=== PATIENT | male | born 1985 | race African-American/Black ===

== ENCOUNTER 2017-04-05 06:16 | Emergency (ER) | payer SELFPAY ==
[~2017-04-05] VITALS: Ht 185.4 cm; Wt 113.4 kg
[2017-04-05 06:40] VITALS: BP 128/77
--- NOTE | 2017-04-05 06:49 | NUR ---
PT TAKEN TO BED 7
--- NOTE | 2017-04-05 06:50 | NUR ---
Diallo hartley in EDM - 04/05/17 at 0654 by JESSICAN 32 Y/O M W/C/O BLURED VISSION X 2 DAYS. MED HX DM, HTN. PT STATES HE IS NOT COMPLAINT WITH TX FOR DM AND HTN.
--- NOTE | 2017-04-05 06:50 | NUR ---
32 Y/O M W/C/O BLURED VISION X 2 DAYS. MED HX DM, HTN. PT STATES HE IS NOT COMPLAINT WITH TX FOR DM AND HTN.
--- NOTE | 2017-04-05 07:38 | NUR ---
PT RESTING ON BED;NO ACUTE DISTRESS NOTED;WILL CONTINUE TO MONITOR PT.
[2017-04-05 08:44] VITALS: BP 124/78
--- NOTE | 2017-04-05 08:44 | NUR ---
Patient discharged with v/s stable. Written and verbal after care instructions given and explained. Patient alert, oriented and verbalized understanding of instructions. with steady gait. All questions addressed prior to discharge. ID band removed. Patient advised to follow up with PMD. Rx of GENATMYCIN SULFATE given. Patient educated on indication of medication including possible reaction and side effects. Opportunity to ask questions provided and answered.
== END 2017-04-05 08:44 | disposition home or self-care (01) ==
LOC: MED 06:16
DX: H10.89 Other conjunctivitis (principal); F20.9 Schizophrenia, unspecified; E11.9 Type 2 diabetes mellitus without complications; Z91.013 Allergy to seafood
CPT/HCPCS: 99283

== ENCOUNTER 2017-04-19 15:54 | Emergency (ER) | payer SELFPAY ==
[~2017-04-19] VITALS: Ht 182.9 cm; Wt 113.4 kg
[2017-04-19 16:50] VITALS: BP 132/71
[2017-04-19 17:34] LABS: BASOPHILS # (AUTO) 0.3 K/uL (0.00-0.22); BASOPHILS % (AUTO) 4.3 % (0.0-2.0); EOSINOPHILS # (AUTO) 0.1 K/uL (0-0.4); EOSINOPHILS % (AUTO) 0.8 % (0.0-4.0); HEMATOCRIT 43.6 % (36-52); HEMOGLOBIN 14.5 g/dL (12.0-18.0); LYMPHOCYTES # (AUTO) 3.5 K/uL (2.0-11.5); LYMPHOCYTES % (AUTO) 46.1 % (20.5-51.1); MEAN CORPUSCULAR HEMOGLOBIN 29 pg (27-31); MEAN CORPUSCULAR HGB CONC 33 g/dL (33-37); MEAN CORPUSCULAR VOLUME 86 fL (80-94); MONOCYTES # (AUTO) 0.6 K/uL (0.8-1.0); MONOCYTES % (AUTO) 8.1 % (1.7-9.3); NEUTROPHILS # (AUTO) 3.2 K/uL (1.8-7.7); NEUTROPHILS % (AUTO) 40.7 % (42.2-75.2); PLATELET COUNT (AUTO) 287 K/uL (140-450); RED BLOOD CELL COUNT(AUTO) 5.07 MIL/uL (4.20-6.10); WHITE BLOOD COUNT (AUTO) 7.8 K/uL (4.8-10.8)
[2017-04-19 17:38] LABS: ANION GAP 6.3 (8-16); CARBON DIOXIDE 31.6 mmol/L (21-32); CHLORIDE 99 mmol/L (98-107); GFR ARICAN-AMERICAN 110 mL/min (>90); GLUCOSE 327 mg/dL (74-106); POTASSIUM 3.9 mmol/L (3.5-5.1); SODIUM SERUM 133 mmol/L (136-145); UREA NITROGEN, BLOOD 12 mg/dL (7-18)
[2017-04-19 17:43] LABS: ASPARTATE AMINOTRANSFERASE 14 U/L (15-37); TOTAL BILIRUBIN 0.6 mg/dL (0.0-1.0)
[2017-04-19 17:50] LABS: ACETONE, SERUM NEGATIVE (NEGATIVE)
--- NOTE | 2017-04-19 18:32 | NUR ---
PATIENT AMBULATED TO BED #3
--- NOTE | 2017-04-19 18:33 | NUR ---
PATIENT PRESENTS TO ED WITH C/O BLURRED VISION, HYPERGLYCEMIA >400 LAST NIGHT;DENIES POLYDIPSIA,POLYPHAGIA,POLYURIA;DENIES FATIGUE;HX OF DM, HYPERLIPIDEMIA, SCHIZOPHRENIA RX OF METFORMIN, XYPREZA 20MG;PT STATES " I FEEL FINE"DENIES N/V/D; SKIN IS PINK/WARM/DRY; AAOX4 WITH EVEN AND STEADY GAIT; LUNGS CLEAR BL; HR EVEN AND REGULAR; PT DENIES ANY FEVER, CP, SOB, OR COUGH AT THIS TIME; PATIENT STATES PAIN OF 0/10 AT THIS TIME;PATIENT POSITIONED FOR COMFORT; HOB ELEVATED; BEDRAILS UP X2; BED DOWN. ER MD MADE AWARE OF PT STATUS.
--- NOTE | 2017-04-19 19:06 | NUR ---
Pt report given to JUMANA CAVANAUGH. Transfer of care at this time.
--- NOTE | 2017-04-19 19:07 | NUR ---
PATIENT RESTING AT THIS TIME.
[2017-04-19 19:39] VITALS: BP 129/82
--- NOTE | 2017-04-19 19:39 | NUR ---
Patient discharged with v/s stable. Written and verbal after care instructions given and explained. Patient verbalized understanding. Ambulatory with steady gait. All questions addressed prior to discharge. Advised to follow up with PMD.
== END 2017-04-19 19:39 | disposition home or self-care (01) ==
LOC: MED 15:54
DX: E11.9 Type 2 diabetes mellitus without complications (principal); I10 Essential (primary) hypertension; E78.00 Pure hypercholesterolemia, unspecified; F20.9 Schizophrenia, unspecified; Z91.14 Patient's other noncompliance with medication regimen; Z91.013 Allergy to seafood
CPT/HCPCS: 36415; 36600; 80053; 81002; 82009; 82803; 82948; 85025; 99284

== ENCOUNTER 2017-05-02 14:44 | Emergency (ER) | payer SELFPAY ==
[~2017-05-02] VITALS: Ht 182.9 cm; Wt 112.9 kg
--- NOTE | 2017-05-02 14:44 | NUR ---
Patient was BIBA at this time.
--- NOTE | 2017-05-02 15:05 | NUR ---
Patient taken to bed 02 via wheelchair.
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
[2017-05-02 15:13] VITALS: BP 160/98
[2017-05-02] MEDS ORDERED: METF1000 PO (15:18)
--- NOTE | 2017-05-02 15:38 | NUR ---
X RAY AT BEDSIDE
--- NOTE | 2017-05-02 15:38 | NUR ---
Diallo hartley in ED - 05/02/17 at 1538 by ANEL XRAY at bedside.
--- NOTE | 2017-05-02 16:02 | NUR ---
Patient c/o left knee pain 12/19. Informed Dr. Siddiqui.
[2017-05-02] MEDS ORDERED: KETOROLAC 60 MG/2 ML VIAL IM ONE (16:10)
[2017-05-02 16:34] LABS: BARBITURATE, URINE NEG. ng/ml (NEG <=200); BENZODIAZEPINE, URINE NEG. ng/mL (NEG <=200); CANNABINOID, URINE NEG. ng/mL (NEG <=50); COCAINE, URINE NEG. ng/mL (NEG <=300); OPIATE, URINE NEG. ng/mL (NEG <=2000); PHENCYCLIDINE SCREEN,URINE NEG. ng/mL (NEG <=25)
--- NOTE | 2017-05-02 16:53 | NUR ---
Patient being reevaluated by DR ANTOINE at bedside.
[2017-05-02] MEDS ORDERED: IBUPROFEN 800 MG TAB PO ONE (17:05)
[2017-05-02 17:21] VITALS: BP 146/83
--- NOTE | 2017-05-02 17:21 | NUR ---
Patient discharged with v/s stable. Written and verbal after care instructions given and explained. Patient alert, oriented and verbalized understanding of instructions. Ambulatory with crutches. All questions addressed prior to discharge. ID band removed. Patient advised to follow up with PMD. Rx of Motrin given. Patient educated on indication of medication including possible reaction and side effects. Opportunity to ask questions provided and answered.
== END 2017-05-02 17:21 | disposition home or self-care (01) ==
LOC: MED 14:44
DX: S83.92XA Sprain of unspecified site of left knee, initial encounter (principal); I10 Essential (primary) hypertension; E11.9 Type 2 diabetes mellitus without complications; Z79.84 Long term (current) use of oral hypoglycemic drugs; Z91.013 Allergy to seafood; W22.8XXA Striking against or struck by other objects, initial encounter; Y93.89 Activity, other specified; Y92.89 Other specified places as the place of occurrence of the external cause; Y99.8 Other external cause status
CPT/HCPCS: 73562; 80305; 82948; 96372; 99285; J1885; Q0092

== ENCOUNTER 2018-05-27 04:24 | Emergency (ER) | payer OTHER ==
[~2018-05-27] VITALS: Ht 182.9 cm; Wt 113.4 kg
[~2018-05-27 04:24] MED LIST: METF1000 PO
[2018-05-27 04:27] VITALS: BP 127/86
[2018-05-27] MEDS ORDERED: ASPIRIN 81 MG TAB.CHEW PO ONE (04:55)
[2018-05-27 05:43] LABS: BASOPHILS % (AUTO) 0.4 % (0.0-2.0); EOSINOPHILS # (AUTO) 0.1 K/uL (0-0.4); EOSINOPHILS % (AUTO) 1.1 % (0.0-4.0); HEMATOCRIT 42.3 % (36-52); HEMOGLOBIN 13.8 g/dL (12.0-18.0); LYMPHOCYTES # (AUTO) 3.4 K/uL (2.0-11.5); LYMPHOCYTES % (AUTO) 49.4 % (20.5-51.1); MEAN CORPUSCULAR HEMOGLOBIN 29 pg (27-31); MEAN CORPUSCULAR HGB CONC 33 g/dL (33-37); MEAN CORPUSCULAR VOLUME 87.5 fL (80-94); MONOCYTES # (AUTO) 0.6 K/uL (0.8-1.0); MONOCYTES % (AUTO) 8.9 % (1.7-9.3); NEUTROPHILS # (AUTO) 2.8 K/uL (1.8-7.7); NEUTROPHILS % (AUTO) 40.2 % (42.2-75.2); PLATELET COUNT (AUTO) 266 K/uL (140-450); RED BLOOD CELL COUNT(AUTO) 4.83 MIL/uL (4.20-6.10); RED CELL DISTRIBUTION WIDTH 13.4 % (11.6-13.7); WHITE BLOOD COUNT (AUTO) 6.9 K/uL (4.8-10.8)
[2018-05-27 06:12] LABS: ANION GAP 11.2 (8-16); CARBON DIOXIDE 32.6 mmol/L (21-32); CREATININE 0.9 mg/dL (0.7-1.3); POTASSIUM 4.8 mmol/L (3.5-5.1); TOTAL BILIRUBIN 0.3 mg/dL (0.0-1.0)
[2018-05-27] MEDS ORDERED: INSULIN REGULAR, HUMAN 100 UNIT/ML VIAL IVP ONE (06:20)
[2018-05-27] MEDS ORDERED: NACL 0.9% 500 ML IV ONE (06:20)
[2018-05-27 07:21] VITALS: BP 121/71
== END 2018-05-27 07:21 | disposition home or self-care (01) ==
LOC: MED 04:24
DX: R06.02 Shortness of breath (principal); E11.65 Type 2 diabetes mellitus with hyperglycemia; Z79.84 Long term (current) use of oral hypoglycemic drugs; Z91.018 Allergy to other foods
CPT/HCPCS: 36415; 71045; 80053; 82009; 82948; 83880; 84484; 85025; 96374; 99284; J1815; J7030; Q0092; 93005

== ENCOUNTER 2023-03-16 15:43 | Emergency (ER) | payer OTHER, MEDICAID ==
[~2023-03-16] VITALS: Ht 182.9 cm; Wt 90.7 kg
[2023-03-16 15:43] VITALS: BP 111/60; PULSE 80; RESP 20; TEMP 98.1; O2SAT 98
[~2023-03-16 15:43] MED LIST changes: +METF-1274 PO; -METF1000 PO
[2023-03-16 15:57] VITALS: O2SAT 96
[2023-03-16] MEDS ORDERED: NACL 0.9% 2,000 ML IV ONE (16:00)
[2023-03-16 16:38] LABS: BASOPHILS % (AUTO) 0.7 % (0.0-2.0); EOSINOPHILS # (AUTO) 0.2 K/uL (0-0.4); EOSINOPHILS % (AUTO) 2.8 % (0.0-4.0); HEMATOCRIT 35.8 % (36-52); HEMOGLOBIN 11.7 g/dL (12.0-18.0); LYMPHOCYTES # (AUTO) 2.5 K/uL (2.0-11.5); LYMPHOCYTES % (AUTO) 45.9 % (20.5-51.1); MEAN CORPUSCULAR HEMOGLOBIN 29 pg (27-31); MEAN CORPUSCULAR HGB CONC 33 g/dL (33-37); MEAN CORPUSCULAR VOLUME 88.2 fL (80-94); MONOCYTES # (AUTO) 0.5 K/uL (0.8-1.0); MONOCYTES % (AUTO) 9.3 % (1.7-9.3); NEUTROPHILS # (AUTO) 2.3 K/uL (1.8-7.7); NEUTROPHILS % (AUTO) 41.3 % (42.2-75.2); PLATELET COUNT (AUTO) 324 K/uL (140-450); RED BLOOD CELL COUNT(AUTO) 4.06 MIL/uL (4.20-6.10); RED CELL DISTRIBUTION WIDTH 15.5 % (11.6-13.7); WHITE BLOOD COUNT (AUTO) 5.5 K/uL (4.8-10.8)
[2023-03-16 16:50] LABS: ANION GAP 14.4 (8-16); CALCIUM 7.8 mg/dL (8.5-10.1); CARBON DIOXIDE 24.1 mmol/L (21-32); CREATININE 0.9 mg/dL (0.6-1.3); POTASSIUM 3.5 mmol/L (3.5-5.1); TOTAL BILIRUBIN 0.3 mg/dL (0.0-1.0); TOTAL PROTEIN, SERUM 6.6 g/dL (6.4-8.2)
[2023-03-16 17:24] VITALS: BP 147/74; PULSE 74; RESP 17; TEMP 97.8
== END 2023-03-16 17:17 | disposition home or self-care (01) ==
LOC: MED 15:43
DX: F10.129 Alcohol abuse with intoxication, unspecified (principal); E11.65 Type 2 diabetes mellitus with hyperglycemia; Z79.4 Long term (current) use of insulin; Z79.899 Other long term (current) drug therapy; Z59.00 Homelessness unspecified; Y90.9 Presence of alcohol in blood, level not specified
CPT/HCPCS: 36415; 80053; 85025; 96360; 99283; G0482; J7030